=== PATIENT | female | born 1985 | race American Indian/Alaskan Native ===

== ENCOUNTER 2018-05-23 04:43 | Emergency (ER) | payer OTHER ==
[2018-05-23] MEDS ORDERED: TYLENOL ONE (04:56)
[2018-05-23] MEDS ORDERED: TYLENOL PO ONE (05:06)
[2018-05-23 05:42] LABS: Basophils # (Auto) 0.1 K/mm3 (0.0-0.1); Eosinophils # (Auto) 0.2 K/mm3 (0.0-0.4); Eosinophils % (Auto) 2.5 % (0.0-4.3); Hematocrit 41.4 % (30.3-42.9); Hemoglobin 13.9 gm/dl (10.1-14.3); Lymphocytes # (Auto) 2.6 K/mm3 (1.2-5.4); Lymphocytes % (Auto) 36.2 % (13.4-35.0); Mean Corpuscular HGB Conc 34 % (30-34); Mean Corpuscular Volume 99 fl (79-97); Monocytes # (Auto) 0.8 K/mm3 (0.0-0.8); Monocytes % (Auto) 11.3 % (0.0-7.3); Platelet Count 333 K/mm3 (140-440); Red Blood Count 4.19 M/mm3 (3.65-5.03); Red Cell Distribution Width 13.5 % (13.2-15.2)
[2018-05-23 05:46] LABS: Bilirubin,Urine NEG (Negative); Blood,Urine NEG (Negative); Color,Urine Straw (Yellow); Mucus,Urine FEW /HPF; Protein,Urine <15 mg/dL mg/dL (Negative); Urobilinogen,Urine < 2.0 mg/dL (<2.0); WBC,Urine < 1.0 /HPF (0.0-6.0)
[2018-05-23 05:49] LABS: Alanine Aminotransferase 11 units/L (7-56); Albumin 4.3 g/dL (3.9-5); BUN/Creatinine Ratio 21; Blood Urea Nitrogen 17 mg/dL (7-17); Calcium 9.3 mg/dL (8.4-10.2); Hemolysis Index 9
[2018-05-23] MEDS ORDERED: NACL 0.9% 1000 ML 1,000 ML IV ONE (07:30)
[2018-05-23] MEDS ORDERED: ZOFRAN IV ONE (07:30)
[2018-05-23] MEDS ORDERED: MORPHINE IV ONE (07:30)
--- NOTE | 2018-05-23 07:42 | Emergency Department Report ---
ED Abdominal Pain HPI - General Chief Complaint: Abdominal Pain Stated Complaint: LOWER PAIN IN ABDOMIN,PAIN TRAVELS TO RIGHT LEG Time Seen by Provider: 05/23/18 07:26 Source: patient Mode of arrival: Ambulatory Limitations: No Limitations - History of Present Illness Initial Comments: This is a 33-year-old female nontoxic, well nourished in appearance, no acute signs of distress presents to the ED with c/o of right lower abdominal pain with radiating to right lower back and right leg 1 day. Patient denies any nausea or vomiting. Patient describes abdominal pain as cramping and aching with level of 3/10. Patient denies chest pain, short of breath, fever, chills, headache, stiff neck, numbness or tingling. Patient denies any diarrhea or constipation. Patient denies any recent travels. Patient denies any urinary symptoms. Patient denies any allergies or PMH. MD Complaint: abdominal pain -: days(s) (1) Location: RLQ Radiation: R flank, other (right leg) Migration to: no migration Severity: mild Severity scale (0 -10): 3 Quality: cramping, aching Consistency: constant Improves With: nothing Worsens With: nothing Associated Symptoms: denies: nausea, vomiting, diarrhea, fever, chills, constipation, dysuria, hematemesis, hematochezia, melena, hematuria, anorexia, syncope - Related Data Previous Rx's Medication Instructions Recorded Last Taken Type Acetaminophen/Codeine [Tylenol 1 tab PO Q6H PRN #12 tab 05/23/18 Unknown Rx /Codeine # 3 tab] Ondansetron [Zofran Odt] 4 mg PO Q8HR PRN #20 tab.rapdis 05/23/18 Unknown Rx Allergies Allergy/AdvReac Type Severity Reaction Status Date / Time No Known Allergies Allergy Unverified 05/23/18 04:46 ED Review of Systems ROS: Stated complaint: LOWER PAIN IN ABDOMIN,PAIN TRAVELS TO RIGHT LEG Other details as noted in HPI Constitutional: denies: chills, fever Eyes: denies: eye pain, eye discharge, vision change ENT: denies: ear pain, throat pain Respiratory: denies: cough, shortness of breath, wheezing Cardiovascular: denies: chest pain, palpitations Endocrine: no symptoms reported Gastrointestinal: abdominal pain. denies: nausea, vomiting, diarrhea Genitourinary: denies: urgency, dysuria, discharge Musculoskeletal: back pain, arthralgia. denies: joint swelling Skin: denies: rash, lesions Neurological: denies: headache, weakness, paresthesias Psychiatric: denies: anxiety, depression Hematological/Lymphatic: denies: easy bleeding, easy bruising ED Past Medical Hx - Past Medical History Previous Medical History?: No - Surgical History Past Surgical History?: Yes Additional Surgical History: Tubaligation - Social History Smoking Status: Never Smoker Substance Use Type: None - Medications Home Medications: Home Medications Medication Instructions Recorded Confirmed Last Taken Type Acetaminophen/Codeine [Tylenol 1 tab PO Q6H PRN #12 tab 05/23/18 Unknown Rx /Codeine # 3 tab] Ondansetron [Zofran Odt] 4 mg PO Q8HR PRN #20 tab.rapdis 05/23/18 Unknown Rx ED Physical Exam - General Limitations: No Limitations General appearance: alert, in no apparent distress - Head Head exam: Present: atraumatic, normocephalic - Eye Eye exam: Present: normal appearance - Neck Neck exam: Present: normal inspection, full ROM. Absent: tenderness, meningismus, lymphadenopathy - Respiratory Respiratory exam: Present: normal lung sounds bilaterally. Absent: respiratory distress, wheezes, rales, rhonchi, stridor, chest wall tenderness, accessory muscle use, decreased breath sounds, prolonged expiratory - Cardiovascular Cardiovascular Exam: Present: regular rate, normal rhythm, normal heart sounds. Absent: irregular rhythm, systolic murmur, diastolic murmur, rubs, gallop - GI/Abdominal GI/Abdominal exam: Present: soft, tenderness (RLQ), normal bowel sounds. Absent: distended, guarding, rebound, rigid, diminished bowel sounds - Expanded GI/Abdominal Exam Expanded GI/Abdominal exam: Absent: psoas sign, Vargas's sign, Rovsing's sign, tenderness at Mcburney's Point, ascites - Extremities Exam Extremities exam: Present: normal inspection, full ROM, normal capillary refill. Absent: tenderness - Back Exam Back exam: Present: normal inspection, full ROM, paraspinal tenderness (right lumbar paraspinal). Absent: tenderness, CVA tenderness (R), CVA tenderness (L), muscle spasm, vertebral tenderness, rash noted - Neurological Exam Neurological exam: Present: alert, oriented X3 - Psychiatric Psychiatric exam: Present: normal affect, normal mood - Skin Skin exam: Present: warm, dry, intact, normal color. Absent: rash ED Course Vital Signs 05/23/18 07:43 Temperature 97.8 F Pulse Rate 76 Respiratory 18 Rate Blood Pressure 137/75 [Left] O2 Sat by Pulse 100 Oximetry - Reevaluation(s) Reevaluation #1: 05/23/18 07:42 Patient is speaking in full sentences with no signs of distress noted. ED Medical Decision Making - Lab Data Result diagrams: 05/23/18 05:12 05/23/18 05:12 - Medical Decision Making This is a 33-year-old female that presents with abdominal pain and lower back pain with possible sciatia. Patient is stable and was examined by me. There is slight abdominal tenderness. Labs obtained. UA obtained. CT with contrast of abdomen obtained and dictated by the radiologist. Patient is notified of the report with no questions noted by the patient. Vital signs are stable prior to discharge. PAtient received medical treatment in the ED which patient stated symptoms has resolved and subsided. A by mouth challenge has been obtained and patient tolerated well with no nausea vomiting. Patient was notified of strict precautions of appendicitis symptoms and to return to the ED if symptoms occurs as soon as possible. Patient was also instructed to Follow-up with a primary care doctor in 3-5 days or if symptoms worsen and continue return to emergency room as soon as possible. At time of discharge, the patient does not seem toxic or ill in appearance. No acute signs of distress noted. Patient agrees to discharge treatment plan of care. No further questions noted by the patient. Critical care attestation.: If time is entered above; I have spent that time in minutes in the direct care of this critically ill patient, excluding procedure time. 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 Do not operate any machinery while taking Tylenol with codeine as this may cause drowsiness. Prescriptions: Acetaminophen/Codeine [Tylenol /Codeine # 3 tab] 1 tab PO Q6H PRN #12 tab PRN Reason: Pain , Severe (7-10) Ondansetron [Zofran Odt] 4 mg PO Q8HR PRN #20 tab.rapdis PRN Reason: Nausea Referrals: [facility] MD TONY [Primary Care Provider] - 3-5 Days PRIMARY CAREMD [Referring] - 3-5 Days LETICIA CRABTREE MD [Staff Physician] - 3-5 Days [facility] [Outside] - 3-5 Days [facility] [Outside] - 3-5 Days Forms: Work/School Release Form(ED)
--- NOTE | 2018-05-23 10:05 | Cat Scan Report ---
PROCEDURE: CT ABDOMEN PELVIS W CON TECHNIQUE: Computerized axial tomography of the abdomen and pelvis was performed without intravenous contrast. This study is performed without intravascular contrast material and its sensitivity for ab dominal and pelvic pathology, including neoplasms, inflammation, abscess, free fluid, thrombosis, art erial dissection and infarction, is reduced compared with a contrast enhanced study. CT DOSE LENGTH PRODUCT: 924.78 mGy-cm. HISTORY: abd pain COMPARISONS: None currently available. FINDINGS: Abdomen: Lung bases and images of the heart are grossly unremarkable. Liver: Decreased heterogeneous attenuation may represent hepatocellular disease, fatty infiltration, or cirrhosis. No suspicious lesion. Stomach: Pyloric portion of the stomach on series 2:36-43 appears mildly thick-walled. Remainder stom ach appears grossly unremarkable. No obvious irregularity or perforation. Spleen, gallbladder pancreas, and adrenals are unremarkable. Kidneys: Symmetrical cortical enhancement. No suspicious lesions. No hydronephrosis. No aneurysm. No dissection. No significant atherosclerotic disease. IVC is unremarkable. There is no periaortic or retroperitoneal adenopathy or mass. Sections of the descending and sigmoid colon are collapsed which limits evaluation for wall thickenin g. A mild colitis is not entirely excluded. No stranding. Mild to moderate stool in the remainder of the colon without wall thickening or inflammatory changes. Terminal ileum is unremarkable. Appendix is normal. Small bowel loops are unremarkable. No obstructive pattern. No air-fluid levels. No free air. No free fluid. Mesentery is unremarkable. Pelvis: Oval-shaped, low attenuation 3.7 x 2.8 cm lesion in the left adnexa may represent an ovary with ovari an cyst. Limited images of the uterus are unremarkable. Bladder: Unremarkable. There is no pelvic mass or adenopathy. Inguinal regions are unremarkable. Bones: No suspicious osseous lesions on this limited examination of the skeleton. Metastatic disease better evaluated with bone scan. Degenerative changes are in the spine. IMPRESSION: * Suspect fatty liver. * Possible mild wall thickening of the distal stomach. Differential diagnosis includes normal variat ion versus mild gastroenteritis. No obstruction. No perforation. * Probable left ovary with ovarian cyst. This document is electronically signed by Isaac Ramos MD., May 23 2018 10:03:49 AM ET
[2018-05-23 11:17] VITALS: BP 122/72
== END 2018-05-23 11:25 | disposition home or self-care (01) ==
LOC: ED 04:43
DX: R10.31 Right lower quadrant pain (principal); M54.41 Lumbago with sciatica, right side; Z98.51 Tubal ligation status
CPT/HCPCS: 36415; 74177; 80053; 81001; 84703; 85025; 96374; 96375; 99284; J2270; J2405; J7030; Q9967